=== PATIENT | male | born 1995 | race Two or more races ===

== ENCOUNTER 2021-01-02 18:20 | Emergency (ER) | payer MEDICAID, OTHER ==
[~2021-01-02] VITALS: Ht 188 cm; Wt 110.7 kg
[~2021-01-02 18:20] MED LIST: DICY20TA PO; DIPH25CA66 PO; FLUP5TAB14 PO; FLUV50TA PO; GABA-521 PO; OMEP20CA74 PO; PROM25TA5 PO; TOPI100T68 PO; ZIPR80CA37 PO
[2021-01-02 20:50] VITALS: BP 144/88
[2021-01-02 22:42] LABS: Basophils # (auto) 0 10 ^3/uL (0-0.2); Basophils % (auto) 0.5 % (0.0-2.0); Eosinophils # (auto) 0.1 10 ^3/uL (0-0.8); Eosinophils % (auto) 0.9 % (0.0-7.0); Hematocrit 46.2 % (41.0-53.0); Hemoglobin 16.2 g/dL (13.5-17.5); Lymphocytes # (auto) 1.7 10 ^3/uL (0.4-5.4); Lymphocytes % (auto) 30.4 % (10.0-50.0); Mean Corpuscular Hemoglobin 31.2 pg (28.0-32.0); Mean Corpuscular Hgb Conc. 35.1 g/dL (32.0-36.0); Mean Corpuscular Volume 88.9 fL (80.0-100.0); Monocytes # (auto) 0.5 10 ^3/uL (0-1.3); Neutrophils # (auto) 3.3 10 ^3/uL (1.6-8.6); Neutrophils % (auto) 59.2 % (37.0-80.0); Nucleated Red Blood Cells % 0.2 %; Red Blood Cells 5.19 10^6/uL (4.5-5.90); Red Cell Distribution Width 12.8 % (11.8-14.3); White Blood Cell 5.6 10^3/uL (4.4-10.8)
[2021-01-02 23:01] LABS: Albumin 3.8 g/dL (3.4-5.0); Calcium 8.9 mg/dL (8.5-10.1); Potassium 4.1 mmol/L (3.5-5.1)
[2021-01-02 23:05] LABS: BUN/Creatinine Ratio 25.5; Bilirubin, Total 0.3 mg/dL (0.2-1.0)
[2021-01-02] MEDS ORDERED: IOHEXOL 300 MG/ML 100ML BOTTLE IJ ONE (23:31)
== END 2021-01-03 01:36 | disposition home or self-care (01) ==
LOC: ER 18:20
DX: G89.11 Acute pain due to trauma (principal); R51.9 Headache, unspecified; R10.13 Epigastric pain; K21.9 Gastro-esophageal reflux disease without esophagitis; Z79.899 Other long term (current) drug therapy; V49.9XXA Car occupant (driver) (passenger) injured in unspecified traffic accident, initial encounter; Y93.89 Activity, other specified; Y92.410 Unspecified street and highway as the place of occurrence of the external cause; Y99.8 Other external cause status
CPT/HCPCS: 36415; 70450; 71260; 72040; 74177; 80053; 85025; 99285; Q9967

== ENCOUNTER → 2022-01-17 | Emergency (ER) | payer MEDICAID | END | disposition left against medical advice (07) | LOC: ER 22:21 | DX: R51.9 Headache, unspecified (principal); Z53.21 Procedure and treatment not carried out due to patient leaving prior to being seen by health care provider ==

== ENCOUNTER 2023-11-27 17:59 | Emergency (ER) | payer OTHER, MEDICAID ==
[~2023-11-27] VITALS: Ht 180.3 cm; Wt 110.0 kg
[~2023-11-27 17:59] MED LIST changes: +PROM25TA10 PO; -PROM25TA5 PO; -ZIPR80CA37 PO; +ZIPR80CA43 PO
[2023-11-27 18:34] LABS: Urine Bacteria None Seen /hpf (None Seen)
[2023-11-27 18:44] VITALS: BP 128/84; PULSE 79; RESP 18; TEMP 98.1; O2SAT 94
[2023-11-27 18:47] LABS: Urine Blood Negative /uL (Negative); Urine Clarity Clear (Clear); Urine Color Yellow (Yellow); Urine Mucus FEW (None Seen); Urine Protein, UAD TRACE (Negative); Urine Specific Gravity 1.032 (1.001-1.035); Urine Urobilinogen 2 mg/dL (Negative); Urine WBC <1 /hpf (0 - 3); Urine pH 6.5 (5.0-9.0)
[2023-11-27 18:55] LABS: Amphetamine Screen, Urine Neg (NEGATIVE); Barbiturate Scree,Urine Neg (NEGATIVE); Benzodiazephine Screen, Urine Neg (NEGATIVE); Cannabinoid Screen, Urine Neg (NEGATIVE); Cocaine Screen, Urine Neg (NEGATIVE); Opiate Scree,Urine Neg (NEGATIVE); Phencyclidine Screen, Urine Neg (NEGATIVE)
[2023-11-27 18:57] LABS: Basophils # (auto) 0 10 ^3/uL (0-0.2); Basophils % (auto) 0.6 % (0.0-2.0); Eosinophils # (auto) 0 10 ^3/uL (0-0.8); Eosinophils % (auto) 0.8 % (0.0-7.0); Hematocrit 44.9 % (41.0-53.0); Hemoglobin 15.8 g/dL (13.5-17.5); Lymphocytes # (auto) 2.2 10 ^3/uL (0.4-5.4); Lymphocytes % (auto) 34.2 % (10.0-50.0); Mean Corpuscular Hemoglobin 31.1 pg (28.0-32.0); Mean Corpuscular Hgb Conc. 35.2 g/dL (32.0-36.0); Mean Corpuscular Volume 88.4 fL (80.0-100.0); Monocytes # (auto) 0.5 10 ^3/uL (0-1.3); Monocytes % (auto) 8.6 % (0.0-12.0); Neutrophils # (auto) 3.5 10 ^3/uL (1.6-8.6); Neutrophils % (auto) 55.8 % (37.0-80.0); Nucleated Red Blood Cells % 0.3 %; Red Blood Cells 5.09 10^6/uL (4.5-5.90); White Blood Cell 6.3 10^3/uL (4.4-10.8)
[2023-11-27 19:07] LABS: Alanine Aminotransferase 36 U/L (7-40); Albumin 4.7 g/dL (3.2-4.8); Alkaline Phosphatase 70 U/L (46-116); Anion Gap 6 (5-15); Aspartate Aminotransferase 21 U/L (13-40); Blood Alcohol < 3.0 mg/dL (<10); Blood Urea Nitrogen 21 mg/dL (9-23); Calcium 9.7 mg/dL (8.7-10.4); Carbon Dioxide 28 mmol/L (20-30); Chloride 110 mmol/L (98-107); Glucose 91 mg/dL (74-106); Potassium 4.4 mmol/L (3.5-5.1); Sodium 144 mmol/L (136-145)
[2023-11-27 19:08] LABS: Bilirubin, Total 0.5 mg/dL (0.2-1.0); Total Protein 6.9 g/dL (5.7-8.2)
== END 2023-11-28 00:42 | disposition home or self-care (01) ==
LOC: ER 17:59 → EDUNIT# 17:59 → EDBD 17:59 → ER 11-28 00:41
DX: R45.851 Suicidal ideations (principal); K21.9 Gastro-esophageal reflux disease without esophagitis; F25.9 Schizoaffective disorder, unspecified; F84.0 Autistic disorder; Z79.899 Other long term (current) drug therapy
CPT/HCPCS: 36415; 80053; 80307; 80320; 81001; 85025